=== PATIENT | male | born 1980 | race Caucasian/White ===

== ENCOUNTER 2020-07-20 09:46 | Emergency (ER) | payer BC, SELFPAY ==
--- NOTE | ~2020-07-20 | XR_ITS ---
EXAMINATION: XR foot RT min 3V EXAM DATE: 07/20/2020 10:20 INDICATION: Fell 5 days ago, posterior right heel pain. Initial encounter. TECHNIQUE: Right foot dorsoplantar, lateral and oblique projections obtained and reviewed. There is no prior study for comparison. FINDINGS: Right metatarsal bones unremarkable. Small posterior and inferior calcaneal spurs. There are no acute fractures or dislocations identified. There is no subcutaneous gas. The soft tissue is unremarkable. There are no radiopaque foreign bodies. IMPRESSION: 1. XR foot RT min 3V exam without acute osseous findings. 2. Calcaneal spurs. Reviewed, dictated and finalized at location A. GENCY MANAGEMENT DIRECTOR
[2020-07-20 09:56] VITALS: BP 137/78; PULSE 87; RESP 20; TEMP 36.8; O2SAT 100
--- NOTE | 2020-07-20 10:05 | ED.LOWEXIN ---
HPI - Extremity Injury (Lower) General Chief Complaint: Extremity Injury, Lower Stated Complaint: right foot pain Time Seen by Provider: 07/20/20 10:00 Source: patient and RN notes reviewed Mode of arrival: ambulatory Limitations: no limitations History of Present Illness HPI Narrative: 40 year old male ambulatory with limping gait presents to [facility] [place] [facility] care with complaints of falling in his driveway on 07/15/2020. He reports that his right foot hurt some that day but pain has gradually increased to his right foot. Patient states that he has pain in his right heel which radiates to his right calf, denies any swelling or redness to his calf region. Patient has been taking Ibuprofen for his discomfort and Tylenol #3 which has helped to decrease his discomfort. Patient has full mobility of his right foot and ankle with no acute swelling present, reports pain increases to the bottom of his right heel with weight bearing. MD complaint: foot injury (right foot) Injury: Right: foot Type of Injury: blunt Place: home Severity: moderate Severity scale (1-10): 4 Relieving factors: NSAID (helps some) Exacerbating factors: weight bearing Context: fall Associated symptoms: able to partially bear weight and other (sharp pain bottom of right heel and radiates up to calf) Treatments prior to arrival: NSAIDS and other (Tylenol #3) Related Data Home Medications Medication Instructions Recorded Confirmed emtricitabine-tenofovir alafen 1 tablet PO DAILY 07/20/20 07/20/20 [Descovy] lisinopril 10 mg PO DAILY 07/20/20 07/20/20 Allergies Allergy/AdvReac Type Severity Reaction Status Date / Time No Known Allergies Allergy Verified 07/20/20 10:10 Review of Systems Review of Systems: Narrative: CONSTITUTIONAL: Denies fever, chills, or sweats. EYES: Denies visual changes, redness, or discharge. ENT: Denies rhinorrhea, congestion, sore throat, or otalgia. CARDIOVASCULAR: Denies chest pain, palpitations, or edema. RESPIRATORY: Denies cough or dyspnea. GASTROINTESTINAL: Denies abdominal pain, nausea, vomiting, or diarrhea. GENITOURINARY: Denies dysuria or hematuria. SKIN: Denies rash or itching. MUSCULOSKELETAL: Denies back pain, positive for right foot/heel pain, or myalgia. NEUROLOGIC: Denies headache, numbness, or weakness. PSYCHIATRIC: Denies anxiety or depression. All systems reviewed & are unremarkable except as noted in HPI and below PMFSH Past Medical History Medical History (Updated 07/20/20 @ 10:17 by Autumn Cantu NP) Hypertension Surgical History Surgical History (Updated 07/21/20 @ 12:28 by Autumn Cantu NP) No history of previous surgery Social History Social History (Updated 07/20/20 @ 10:39 by Autumn Cantu NP) Smoking status: Never smoker Alcohol intake: current Alcohol use details: social Substance use: never Living arrangements: with friend(s) Gender identity (if verbalized by the patient): Male Comments At time of signature, agree with nursing past medical, surgical, social history. There is no relevant family history pertinent to the presenting complaint Exam Narrative: Exam Narrative: GENERAL: Well-appearing, well-nourished, and in no acute distress. HEAD: Normocephalic, atraumatic. EYES: PERRLA and EOMI. ENT: Nares clear, no rhinorrhea or epistaxis. Mucous membranes moist.Tm's normal with good light reflex, throat pink with no swelling or redness. NECK: Supple.no lymphadenopathy CHEST: Clear to auscultation. No respiratory distress. HEART: Regular rate and rhythm. No murmur heard. Normal peripheral pulses. ABDOMEN: Soft, nontender, nondistended, normal active bowel sounds. EXTREMITIES: Normal range of motion. No edema.Pain to right posterior heel region with increase with weight bearing, strong right pedal and posterior tibial pulses, no tingling or numbness to right foot, full mobility of right foot and ankle with no acute edema noted. negative Vogt test. Radiation of pain to r
== END 2020-07-20 10:40 | disposition home or self-care (01) ==
PROVIDERS: Emergency Provider Registered Nurse
DX: M77.31 Calcaneal spur, right foot (principal); I10 Essential (primary) hypertension
CPT/HCPCS: 73630; 99213; G0463